=== PATIENT | male | born 1995 | race Caucasian/White ===

== ENCOUNTER → 2016-03-07 | Outpatient (REF) | payer BC ==
[2016-03-07 16:07] LABS: ANION GAP 5 MEQ/L (8-16); BASO # 0.2 K/mm3 (0.0-0.2); BASO % 2.5 % (0.0-1.0); BLOOD UREA NITROGEN 13 MG/DL (7-18); CALCIUM LEVEL 8.9 MG/DL (8.5-10.1); CARBON DIOXIDE LEVEL 32 MEQ/L (21-32); CHLORIDE LEVEL 105 MEQ/L (98-107); EOS # 0.1 K/mm3 (0.0-0.50); EOS % 1.6 % (0.0-3.0); GLOMERULAR FILTRATION RATE > 60.0 (>60); GLUCOSE, FASTING 106 MG/DL (70-105); LARGE UNSTAINED CELL # 0.2 K/mm3 (0.0-0.4); LYMPH # 2.4 K/mm3 (1.5-6.5); LYMPH % 28.8 % (24.0-44.0); MEAN CORPUSCULAR HEMOGLOBIN 26.2 pg (27.0-33.0); MEAN CORPUSCULAR VOLUME 79.2 fl (80.0-96.0); MONO # 0.4 K/mm3 (0.0-0.8); MONO % 5.5 % (0.0-5.0); NEUTROPHILS # 4.6 K/mm3 (1.8-7.7); NEUTROPHILS % 59.7 % (36.0-66.0); PLATELET COUNT, AUTOMATED 209 k/mm3 (150-450); RED CELL DISTRIBUTION WIDTH 14.4 % (11.5-14.5); SODIUM LEVEL 142 MEQ/L (136-145); WHITE BLOOD COUNT 7.8 K/mm3 (4.0-10.0)
[2016-03-07 16:09] LABS: POTASSIUM SERUM 5.2 MEQ/L (3.5-5.1)
== END ==
LOC: M LABDRAW1 15:33
PROVIDERS: ATTEND Emergency Medicine
DX: G93.5 Compression of brain (principal)

== ENCOUNTER → 2016-09-29 | Outpatient (CLI) | payer BC ==
--- NOTE | 2016-09-29 16:35 | REP ---
RIGHT KNEE, TWO VIEWS: There is no evidence of an acute fracture, dislocation or intrinsic bone disease. No radiopaque foreign body is seen in the soft tissues. IMPRESSION: No fracture or dislocation. Signed by Carlos A Manzanares MD 09/29/2016 05:11 P
== END ==
LOC: M WUC 15:03
PROVIDERS: ATTEND Physician Assistant
DX: M25.561 Pain in right knee (principal)

== ENCOUNTER → 2016-11-09 | Outpatient (REF) | payer BC ==
[2016-11-09 12:05] LABS: BASO % 0.6 % (0.0-1.0); EOS # 0.1 10^3/uL (0.0-0.50); EOS % 1.8 % (0.0-3.0); IMMATURE GRANULOCYTE % 0.6 % (0-0); LYMPH # 2.3 10^3/uL (1.5-6.5); LYMPH % 33.1 % (24.0-44.0); MEAN CORPUSCULAR HGB CONC 33.1 g/dl (32.0-36.5); MEAN CORPUSCULAR VOLUME 78.7 fl (80.0-96.0); MONO # 0.7 10^3/uL (0.0-0.8); MONO % 9.8 % (0.0-5.0); NEUTROPHILS # 3.7 10^3/uL (1.8-7.7); NEUTROPHILS % 54.1 % (36.0-66.0); PLATELET COUNT, AUTOMATED 204 10^3/uL (150-450); WHITE BLOOD COUNT 6.8 10^3/uL (4.0-10.0)
[2016-11-09 12:18] LABS: FOLATE > 24.0 NG/ML (>5.4); VITAMIN B12 LEVEL 673 PG/ML (247-911)
[2016-11-09 12:23] LABS: ALBUMIN 4.2 GM/DL (3.2-5.2); ALBUMIN/GLOBULIN RATIO 1.45 (1.00-1.93); ALKALINE PHOSPHATASE 82 U/L (45-117); ALT/SGPT 37 U/L (12-78); ANION GAP 4 MEQ/L (8-16); AST/SGOT 14 U/L (15-37); BILIRUBIN,TOTAL 0.5 MG/DL (0.2-1.0); BLOOD UREA NITROGEN 13 MG/DL (7-18); CALCIUM LEVEL 9.5 MG/DL (8.5-10.1); CARBON DIOXIDE LEVEL 30 MEQ/L (21-32); CHLORIDE LEVEL 106 MEQ/L (98-107); CHOLESTEROL LEVEL 166 MG/DL (<200); CREATININE FOR GFR 0.92 MG/DL (0.70-1.30); FREE T4 0.96 NG/DL (0.76-1.46); GLOMERULAR FILTRATION RATE > 60.0 (>60); GLUCOSE, FASTING 85 MG/DL (70-105); POTASSIUM SERUM 4.2 MEQ/L (3.5-5.1); SODIUM LEVEL 140 MEQ/L (136-145); TOTAL PROTEIN 7.1 GM/DL (6.4-8.2); TRIGLYCERIDES LEVEL 109 MG/DL (<150)
[2016-11-17 00:07] LABS: DQ2(DQ1A 0501/0505,DQB1 02XX) Positive (.); DQ8(DQA1 03XX, DQB1 0302) Negative (.); ENDOMYSIAL ABY IgA Negative (Negative)
== END ==
LOC: M LABDRAW1 10:05
PROVIDERS: ATTEND Emergency Medicine
DX: R73.01 Impaired fasting glucose (principal); R53.83 Other fatigue

== ENCOUNTER 2017-02-10 16:50 | Emergency (ER) | payer OTHER, BC ==
[2017-02-10] MEDS: LIDOCAINE 1% MDV 20ML VIAL IM (18:15)
[2017-02-10] MEDS: DERMABOND TOPICAL SKIN ADHESIVE TOP (18:19)
== END 2017-02-10 18:41 | disposition home or self-care (01) ==
LOC: M ED 16:50
DX: S61.210A Laceration without foreign body of right index finger without damage to nail, initial encounter (principal); S61.212A Laceration without foreign body of right middle finger without damage to nail, initial encounter; W26.8XXA Contact with other sharp object(s), not elsewhere classified, initial encounter; Y92.9 Unspecified place or not applicable; Y93.9 Activity, unspecified; Y99.0 Civilian activity done for income or pay; Q07.00 Arnold-Chiari syndrome without spina bifida or hydrocephalus; R33.9 Retention of urine, unspecified; Z79.899 Other long term (current) drug therapy; Z88.1 Allergy status to other antibiotic agents
CPT/HCPCS: 12001

== ENCOUNTER 2017-02-17 16:56 | Emergency (ER) | payer OTHER | END 2017-02-17 17:54 | disposition home or self-care (01) | LOC: M ED 16:56 | DX: Z48.02 Encounter for removal of sutures (principal); Z79.899 Other long term (current) drug therapy; Z88.1 Allergy status to other antibiotic agents | CPT/HCPCS: 99282 ==

== ENCOUNTER → 2017-03-25 | Outpatient (REF) | payer OTHER, BC | LOC: M LAB REF 19:27 | DX: J02.9 Acute pharyngitis, unspecified (principal) ==

== ENCOUNTER 2017-04-06 09:18 | Emergency (ER) | payer BC, OTHER ==
[2017-04-06 10:24] LABS: INFLUENZA A AMPLIFICATION POSITIVE (NEGATIVE); INFLUENZA B AMPLIFICATION NEGATIVE (NEGATIVE)
== END 2017-04-06 10:51 | disposition home or self-care (01) ==
LOC: M ED 09:18
DX: J09.X2 Influenza due to identified novel influenza A virus with other respiratory manifestations (principal); Z79.899 Other long term (current) drug therapy; Z88.1 Allergy status to other antibiotic agents; Z87.798 Personal history of other (corrected) congenital malformations
CPT/HCPCS: 87502

== ENCOUNTER 2017-08-08 10:57 | Emergency (ER) | payer OTHER, BC ==
[2017-08-08] MEDS: KETOROLAC 60 MG/2 ML VIAL (J1885) IM (12:22)
== END 2017-08-08 12:37 | disposition home or self-care (01) ==
LOC: M ED 10:57
DX: S39.012A Strain of muscle, fascia and tendon of lower back, initial encounter (principal); X50.0XXA Overexertion from strenuous movement or load, initial encounter; Y92.89 Other specified places as the place of occurrence of the external cause; Z88.1 Allergy status to other antibiotic agents; Z79.899 Other long term (current) drug therapy
CPT/HCPCS: J1885

== ENCOUNTER → 2019-07-26 | Outpatient (CLI) | payer BC ==
[~2019-07-26] MED LIST: BUPR300T92; DITR5TAB PO; DOXY-350 PO; FLOM0.4C39 PO; IBUP80TA PO; MULTCAP PO; OXYB-54; PERCOCET PO; ROBA500T PO
== END ==
LOC: M LABSMTC 10:45
PROVIDERS: ATTEND Anesthesiology
DX: Z11.59 Encounter for screening for other viral diseases (principal)
CPT/HCPCS: C9803; U0003

== ENCOUNTER 2019-07-29 08:03 | Day surgery (SDC) | payer BC ==
[~2019-07-29] VITALS: Ht 182.9 cm; Wt 107.4 kg
[~2019-07-29 08:03] MED LIST changes: -DOXY-350 PO; +LIDOCAINE 1% MDV 20ML VIAL SQ PRN; +LIDOCAINE 2% 100MG/5ML SDV (FOR ANES.) As Ordered ONE; +LR 1,000 ML IV ONE; +MIDAZOLAM INJ 2MG/2ML VIAL (J2250 PER 1MG) As Ordered ONE; -PERCOCET PO; +ROCURONIUM BROMIDE 50 MG/5 ML VIAL As Ordered ONE; +fentaNYL 100 MCG/2 ML INJECTION (J3010) As Ordered ONE; +propofoL 200 MG/20 ML VIAL As Ordered ONE
[2019-07-29] MEDS ORDERED: METHYLENE BLUE 0.5% (5MG/ML) 10 ML AMP (PROVAYBLUE) As Ordered ONE (09:00)
[2019-07-29] MEDS ORDERED: LIDOCAINE W/EPINEPHRINE 1% 20ML VIAL As Ordered ONE (09:00)
[2019-07-29] MEDS ORDERED: IBUPROFEN 800 MG TAB PO SCH (09:00)
[2019-07-29] MEDS ORDERED: OXYMETAZOLINE NASAL SPRAY (AFRIN) As Ordered ONE (09:00)
[2019-07-29] MEDS ORDERED: dexameTHASONE 4 MG/ML 1ML VIAL (J1100 PER 1MG) As Ordered ONE (09:25)
[2019-07-29] MEDS ORDERED: ONDANSETRON 4MG/2ML VIAL As Ordered ONE (09:28)
[2019-07-29] MEDS ORDERED: SUGAMMADEX SODIUM 500 MG/5 ML VIAL (BRIDION) As Ordered ONE (09:29)
[2019-07-29] MEDS ORDERED: SODIUM CHLORIDE 0.9% NASAL GEL 15GM (AYR) As Ordered ONE (10:00)
[2019-07-29] MEDS ORDERED: fentaNYL 100 MCG/2 ML INJECTION (J3010) As Ordered ONE ×2 (10:03→10:58)
[2019-07-29] MEDS ORDERED: PHENYLephrine HCL 500 MCG/5 ML (100MCG/ML) SYRINGE (J2370) As Ordered ONE (10:17)
[2019-07-29] MEDS ORDERED: ePHEDrine SULFATE 25 MG/5 ML(5MG/ML) SYRINGE As Ordered ONE (10:17)
[2019-07-29] MEDS ORDERED: DOXY-350 PO (10:58)
[2019-07-29] MEDS ORDERED: PERCOCET PO (10:58)
[2019-07-29] MEDS ORDERED: PERCOCET 5MG/325MG TAB As Ordered ONE (10:58)
[2019-07-29] MEDS: fentaNYL 100 MCG/2 ML INJECTION (J3010) IV PRN ×3 (11:00→11:12)
[2019-07-29] MEDS ORDERED: PERCOCET 5MG/325MG TAB PO PRN ×2 (11:15)
[2019-07-29] MEDS ORDERED: METOCLOPRAMIDE INJ 10MG/2ML VIAL (J2765 PER 1) IV PRN (11:15)
[2019-07-29] MEDS ORDERED: ONDANSETRON 4MG/2ML VIAL IV PRN (11:15)
[2019-07-29] MEDS ORDERED: LR 1,000 ML IV SCH (11:15)
[2019-07-29 11:55] VITALS: BP 140/78
--- NOTE | 2019-07-31 08:58 | RO ---
DATE OF PROCEDURE: 07/29/2019 PREOPERATIVE DIAGNOSES: Deviated septum, chronic rhinitis. POSTOPERATIVE DIAGNOSES: Deviated septum, chronic rhinitis. PROCEDURE: Septoplasty, partial reduction inferior turbinates. SURGEON: Dr. Yair Flores MANAGER PLACEMENT: ANESTHESIA: General endotracheal. INDICATIONS: 23-year-old with long history of nasal obstruction. DESCRIPTION OF PROCEDURE: Satisfactory general endotracheal anesthesia administered. Pharyngeal pack placed. The nose was prepared for surgery by placing cotton-soaked pledgets with Afrin solution to nasal cavity bilaterally. 1% Xylocaine with 1:100,000 epinephrine was used to inject into the nasal septum and inferior turbinates. A Tu incision was made on the left side of the nose. A mucoperichondrial flap and envelope was created on the left side of the nasal septum and carried down to the junction of the bony and cartilaginous septum. This was then with an elevator, and an envelope was then created on the right side of the septum. A Venecia scissors was used to make a cut high in the perpendicular plate in the midportion of the vomer, and a central segment of the bony septum was resected. Next, with the round knife on the Dana elevator, a strip of cartilage was resected from the floor of the nose, mobilizing the quadrilateral cartilage and creating a swinging door. Then, a central segment of cartilaginous septum was resected, preserving a 1 cm dorsal and caudal strut. Double-action rongeur was used to take down deflected portions of the perpendicular plate, as well. Finally, the maxillary crest spur was taken down after elevating mucoperiosteum off both sides of it with a chisel. A segment of the resected cartilage was morselized and placed back into the septal envelope. The incision was closed using an interrupted #5-0 chromic suture. Then, a #4-0 plain suture was placed in a [id number]-ityyn fashion through the two leaves of mucoperichondrium to appose them. Next, the inferior turbinates were medially infractured. A #15 blade was used to make an incision on the anterior tip of the inferior turbinate. With a [place] elevator, a mucoperiosteal tunnel was created on the medial side of the turbinate. Then, the microdebrider with a 2.9 mm blade was inserted into the tunnel, and the underlying turbinate bone was weakened and partially resected using the microdebrider. Then, the turbinate was laterally outfractured. The posteroinferior tip of the turbinate was then cauterized with suction cautery. Finally, Duncan splints were placed into the nose and sewn to the columella with a #2-0 Prolene suture. The pharyngeal pack was removed and the throat suctioned. The patient was awakened, extubated, and sent to recovery in satisfactory condition. He will be discharged home on Percocet for pain, doxycycline 100 mg twice a day. He will be seen in the office in 1 week.
== END 2019-07-29 12:35 | disposition home or self-care (01) ==
LOC: M SDC 08:03
PROVIDERS: ATTEND Specialist
DX: J34.2 Deviated nasal septum (principal); J31.0 Chronic rhinitis; Z88.1 Allergy status to other antibiotic agents; Z88.2 Allergy status to sulfonamides; Z91.013 Allergy to seafood; Z79.899 Other long term (current) drug therapy
CPT/HCPCS: 30140; 30520; 88300; J1100; J2250; J2370; J2405; J3010; Q9968